=== PATIENT | male | born 1940 | race Caucasian/White ===

== ENCOUNTER 2017-01-15 04:50 | Observation (INO) | payer OTHER ==
[~2017-01-15] VITALS: Ht 172.7 cm; Wt 80.4 kg
--- NOTE | 2017-01-15 07:00 | DIAGNOSTIC IMAGING REPORT ---
PROCEDURE: CT ABD/PELVIS WITH CONTRAST CLINICAL INDICATION: ABDOMINAL PAIN TECHNIQUE: 125 ml of Isovue 300 were injected intravenously and axial images were obtained of the entire abdomen and pelvis with sagittal and coronal reformations. COMPARISON: None. FINDINGS: ABDOMEN: Minor bibasilar atelectasis. Borderline cardiomegaly. Enlarged gallbladder (10 cm) with multiple small calcified gallstones, wall thickening and pericholecystic inflammatory changes. No evidence of biliary obstruction. Right-sided THICKENER OPERATOR shunt with the tip in the right lower quadrant. Hepatic steatosis. The pancreas, spleen, adrenal glands and kidneys are unremarkable. Moderate atherosclerosis of the aorta. PELVIS: Normal appendix. 5 cm left inguinal hernia containing a knuckle of the sigmoid colon. Mild sigmoid diverticulosis. Small amount of free fluid the pelvis. Enlarged prostate (5.5 cm). Normal bladder. Moderate degenerative changes of the lower facets. IMPRESSION: 1. Cholelithiasis with inflammatory changes consistent with acute cholecystitis 2. Hepatic steatosis 3. 5 cm left inguinal hernia containing a knuckle of the sigmoid colon 4. Mild sigmoid diverticulosis 5. Right-sided THICKENER OPERATOR shunt 6. Results discussed with Dr. Botello All CT scans at this facility use dose modulation, iterative reconstruction, and/or weight-based dosing when appropriate to reduce radiation dose to as low as reasonably achievable.
--- NOTE | 2017-01-15 07:00 | DIAGNOSTIC IMAGING REPORT ---
PROCEDURE: CT ABD/PELVIS WITH CONTRAST CLINICAL INDICATION: ABDOMINAL PAIN TECHNIQUE: 125 ml of Isovue 300 were injected intravenously and axial images were obtained of the entire abdomen and pelvis with sagittal and coronal reformations. COMPARISON: None. FINDINGS: ABDOMEN: Minor bibasilar atelectasis. Borderline cardiomegaly. Enlarged gallbladder (10 cm) with multiple small calcified gallstones, wall thickening and pericholecystic inflammatory changes. No evidence of biliary obstruction. Right-sided FOOD CHEMIST shunt with the tip in the right lower quadrant. Hepatic steatosis. The pancreas, spleen, adrenal glands and kidneys are unremarkable. Moderate atherosclerosis of the aorta. PELVIS: Normal appendix. 5 cm left inguinal hernia containing a knuckle of the sigmoid colon. Mild sigmoid diverticulosis. Small amount of free fluid the pelvis. Enlarged prostate (5.5 cm). Normal bladder. Moderate degenerative changes of the lower facets. IMPRESSION: 1. Cholelithiasis with inflammatory changes consistent with acute cholecystitis 2. Hepatic steatosis 3. 5 cm left inguinal hernia containing a knuckle of the sigmoid colon 4. Mild sigmoid diverticulosis 5. Right-sided FOOD CHEMIST shunt 6. Results discussed with Dr. Botello All CT scans at this facility use dose modulation, iterative reconstruction, and/or weight-based dosing when appropriate to reduce radiation dose to as low as reasonably achievable.
--- NOTE | 2017-01-15 07:21 | ED ORDER SUMMARY ---
..... Patient: RENETTA KOHLI OrderSheet [facility] VisitID: [id number] [place] [address] 76y, M Registration Date/Time: 01/15/2017 ORDER SHEET Weight: 77.1 kg (stated) Allergies: No Known Drug Allergy GENERAL ORDERS: CBC w Diff Urgent (04:55 01/15/2017 Nora ROGERS) (Ack 4:59 CHagerty ER Game And Fish Protector) (5:21 RCollier R.N.) CMP Urgent (04:55 01/15/2017 Nora ROGERS) (Ack 4:59 CHagerty ER Game And Fish Protector) (5:21 RCollier R.N.) UA-Culture if indicated Urgent (04:55 01/15/2017 Nora ROGERS) (Ack 4:59 CHagerty ER Game And Fish Protector) (7:21 JSimbeck R.N.) Amylase Urgent (04:55 01/15/2017 Nora ROGERS) (Ack 4:59 CHagerty ER Game And Fish Protector) (5:21 RCollier R.N.) Lipase Urgent (04:55 01/15/2017 Nora ROGERS) (Ack 4:59 CHagerty ER Game And Fish Protector) (5:21 RCollier R.N.) Blood Culture (No) (N/A) Urgent (05:53 01/15/2017 CHagerty ER Game And Fish Protector verbal order read back to Nora ROGERS) (Ack 5:58 CHagerty ER Game And Fish Protector) (7:25 CHagerty ER Game And Fish Protector) CT Abd/Pel w Cont (No) (BUN 13, CRE1.1, GFR>60) Urgent (05:53 01/15/2017 CHagerty ER Game And Fish Protector verbal order read back to Nora ROGERS) (Ack 5:58 CHagerty ER Game And Fish Protector) (6:38 Joan) Lactate, Serum Urgent (05:56 01/15/2017 CHagerty ER Game And Fish Protector verbal order read back to Nora ROGERS) (Ack 5:58 CHagerty ER Game And Fish Protector) (7:21 JSimbeck R.N.) MEDICATION ORDERS: IV FLUIDS: IV NS : initial bolus 500 mL (1000 mL/hr), then 125 mL/hr for 4h (NOW); Urgent (04:55 01/15/2017 Nora ROGERS) (Ack 5:04 RCollier R.N.) (5:20 RCollier R.N.) Dilaudid IV 0.5 mg (NOW) (05:22 01/15/2017 Nora ROGERS) (Ack 5:24 RCollier R.N.) (5:34 RCollier R.N.) Zofran IV 4 mg (NOW) (05:22 01/15/2017 Nora ROGERS) (Ack 5:24 RCollier R.N.) (5:34 RCollier R.N.) Protonix IVP 40mg 40 mg (Mix in NS 10ml over 2min) (05:24 01/15/2017 Nora ROGERS) (Ack 5:24 RCollier R.N.) (5:35 RCollier R.N.) Levofloxacin IV 750 mg/150 mL (NOW) (07:25 01/15/2017 Nora ROGERS) (7:41 JSimbeck R.N.) Metronidazole IV 500 mg/100mL (NOW) (07:25 01/15/2017 Nora ROGERS) (7:47 JSimbeck R.N.) Dilaudid IV 0.5 mg (HIGH ALERT MEDICATION, NOW) (07:42 01/15/2017 Nora ROGERS) (7:51 JSimbeck R.N.) ORDER SHEET NOTES: [Electronically signed by Rafa Marcos R.N. (11:04 01/15/2017)] [Electronically signed by Ej Botello MD (21:36 01/15/2017)] [Electronically locked/signed by Rafa Marcos R.N. (11:04 01/15/2017)]
--- NOTE | 2017-01-15 07:21 | ED NURSING NOTES ---
Clinical Report - Nurses [address] [place] [address] 01/15/2017 4:52 Patient: RENETTA KOHLI TRIAGE Triage time 04:54. Acuity: LEVEL 3. Chief Complaint: ABDOMINAL PAIN and NAUSEA. Alert. --05:02 Ale Ellis R.N. <<STRICKEN ENTRY-- 04:53 01/15/17. BP: 88/74. HR: 75. RR: 19. O2 saturation: 97%. Temp: 98.9 F (oral). Pain level now: 02/24. --05:02 Ale Ellis R.N. --END STRIKE>> Correction. --07:26 Ale Ellis R.N. 07:26 01/15/17. BP: 188/74. HR: 75. RR: 19. O2 saturation: 97% on room air. Temp: 98.9 F (oral). Pain level now: 02/24. --07:26 Ale Ellis R.N. Weight: 77.1 kg stated. Height/Length: 68 inches Per Patient. BMI: 25.9. --05:01 Ale Ellis R.N. Medications Diazepam Oral, as needed, dizziness due to inner ear problems, last dose 2-3 weeks. --04:55 Ale Ellis R.N. Fexofenadine HCl Oral. --04:55 Ale Ellis R.N. Fluticasone Furoate Nasal. --04:55 Ale Ellis R.N. Mar-D Allergy & Congestion Oral. --04:55 Ale Ellis R.N. Allergies No Known Drug Allergy. --04:57 Ale Ellis R.N. History Arrived by EMS. Primary physician ([facility] in [place]). This started last night. Onset. (at about 1800). Treatment VENEER LATHE OPERATOR: None. See EMS report. PAST MEDICAL HX: Immunizations: up-to-date. SOCIAL HX: Never smoker. No alcohol use or drug use. NUTRITIONAL RISK ASSESSMENT: The nutritional risk assessment revealed no deficiencies. FUNCTIONAL ASSESSMENT: Functional assessment performed: uses walker and cane. on going due to hydrocephalis. --05:02 Ale Ellis R.N. No vomiting or diarrhea. --05:04 Ale Ellis R.N. ( reports pt has had similar episodes of abdominal pain, after eating. First episode was 4-18-17 & pt was seen by PCP 2 weeks after and no work up was done at that time. Pt then had another episode 4 days ago and then again last night/now.). --05:10 Ale Ellis R.N. PROBLEMS: Seasonal allergic rhinitis. Inner Ear Problems. --04:59 Ale Ellis R.N. Hydrocephalus. --05:01 Ale Ellis R.N. Meniere's Syndrome. --05:12 Ale Ellis R.N. ADDITIONAL SURGERIES: Ear surgeries. --04:59 Ale Ellis R.N. brain Shunt. --05:01 Ale Ellis R.N. The following entry was struck by Ale Ellis R.N., 05:01 Reason - other <<STRICKEN ENTRY-- Stent in brain. --04:59 Ale Ellis R.N. --END STRIKE>>. Interventions ID band on patient. To treatment room. --05:02 Ale Ellis R.N. PHYSICAL ASSESSMENT To room via stretcher. Patient gowned. GENERAL / NEURO / PSYCH: Alert. Oriented X 4. Appears in no acute distress. HEENT: Mucous membranes are pink. RESPIRATORY: Respirations not labored. CVS: Capillary refill less than 2 seconds. SKIN: Skin is warm and dry. --05:02 Ale Ellis R.N. NURSING PROGRESS NOTES Head of bed elevated. Two patient identifiers checked. Call light placed in reach. Side rails up x 1. Bed placed in lowest position. Brakes of bed on. --05:03 Ale Ellis R.N. Patient ready for evaluation- chart flagged. --05:03 Ale Ellis R.N. ( urinal given to pt, sample requested). --05:03 Ale Ellis R.N. 05:00 01/15/2017 Site #1 started via IV in the right antecubital space with an 20g angiocath, with aseptic technique and good blood return; one attempt. Blood drawn: rainbow set. Labeled in the presence of the patient and sent to the lab. Saline lock flushed with 10 mL saline (started by Kam Owen RN). --05:03 Ale Ellis R.N. 05:20 01/15/2017 Started bag #1 1000 mL IV Fluids IV NS (Saline); bolus of 500 mL over 30 minute(s) then at 125 mL/hr via site #1 via IV pump. Allergies verified and confirmed 5 rights. IV patency established. IV site checked: no pain, redness, or swelling. IV flushed thoroughly pre- and post-medication administration. --05:20 Ale Ellis R.N. 05:28 01/15/2017 Zofran (Ondansetron HCl) IVP 4 mg given over 1 minute(s) via site #1. Allergies verified and confirmed 5 rights. IV patency established. IV site checked: no pain, redness, or swelling. IV flushed thoroughly pre- and post-medication administration. IVP given by RN. --05:34 Ale Ellis R.N. 05:30 01/15/2017 Dilaudid (HYDROmorphone HCl PF) IVP 0.5 mg given over 1 minute(s) via site #1. Allergies verified, confirmed 5 rights and sedative warning given to the patient. IV patency established. IV site checked: no pain, redness, or swelling. IV flushed thoroughly pre- and post-medication administration. IVP given by RN. --05:34 Ale Ellis R.N. 05:32 01/15/2017 PROTONIX (Pantoprazole Sodium) IVP 40 mg given diluted in NS 10mL over 2 minute(s) via site #1. Allergies verified and confirmed 5 rights. IV patency established. IV site checked: no pain, redness, or swelling. IV flushed thoroughly pre- and post-medication administration. IVP given by RN. --05:35 Ale Ellis R.N. 06:40. Patient ID band checked for patient name and birthdate. Clean catch urine collected with return of yellow-colored madina-colored clear urine; sample sent to lab for urinalysis. Specimen labeled in the presence of the patient. --06:40 Jeremías Hinson R.N. 07:32 01/15/2017 Started 750 mg of Levofloxacin IVPB in bag #1 150 mL; at 100 mL/hr over 1.5 hour(s) via site #1 via IV pump. Allergies verified and confirmed 5 rights. IV patency established. IV site checked: no pain, redness, or swelling. IV flushed thoroughly pre- and post-medication administration. --07:41 Rafa Marcos R.N. 07:45 01/15/2017 Started 500 mg of Metronidazole IVPB in bag #1 100 mL; at 100 mL/hr over 1 hour(s) via site #1 via IV pump. Allergies verified and confirmed 5 rights. IV patency established. IV site checked: no pain, redness, or swelling. IV flushed thoroughly pre- and post-medication administration. --07:47 Rafa Marcos R.N. 07:48 01/15/2017 Dilaudid (HYDROmorphone HCl PF) IVP 0.5 mg given over 1 minute(s) via site #1. Allergies verified, confirmed 5 rights and sedative warning given to the patient. IV patency established. IV site checked: no pain, redness, or swelling. IV flushed thoroughly pre- and post-medication administration. IVP given by RN. --07:51 Rafa Marcos R.N. 05:30 01/15/17. BP: 174/76. HR: 75. RR: 20. O2 saturation: 94%. --07:52 Rafa Marcos R.N. 06:00 01/15/17. BP: 180/83. HR: 77. RR: 20. O2 saturation: 96%. --07:53 Rafa Marcos R.N. Care transferred and report received (from JODIE Aguilera @[id number]). --07:54 Rafa Marcos R.N. ( h/p forms on chart.). --07:54 Suzie Diaz, ER Tech1 Pulse oximeter and NIBP monitor placed on patient; monitor alarms on. Head of bed elevated. Reassurance given. Call light placed in reach. Bed placed in lowest position. Brakes of bed on. --07:57 Rafa Marcos R.N. 07:50 01/15/17. BP: 160/79. HR: 73. RR: 20. O2 saturation: 94% on room air. Pain level now: 03/27. --07:57 Rafa Marcos R.N. ( Overview faxed to 2nd floor.). --08:27 Suzie Diaz ER Tech1 08:00 01/15/17. BP: 159/75. HR: 69. RR: 16. O2 saturation: 95% on room air. Pain level now: 10/25. --08:36 Rafa Marcos R.N. 08:45 01/15/2017 Metronidazole IVPB Discontinued: bag #1 completed. Total amount infused: 100 mL. IV patency established. IV site checked: no pain, redness, or swelling. IV flushed thoroughly. --08:46 Rafa Marcos R.N. 08:40 01/15/17. BP: 143/79. HR: 78. RR: 16. O2 saturation: 95% on room air. Pain level now: 10/25. --08:48 Rafa Marcos R.N. ( Pt and his started working on the admit packet). --08:48 Rafa Marcos R.N. 09:10 01/15/2017 IV Fluids IV NS Discontinued: bag #1 completed upon admission. Total amount infused: 1000 mL. IV patency established. IV site checked: no pain, redness, or swelling. IV flushed thoroughly. --11:04 Rafa Marcos R.N. DISPOSITION / DISCHARGE Report was given to a nurse via a phone call. Report included patient's care, treatment, medications, reviewed medication reconcilliation, and condition (including any recent changes or anticipated changes). All questions were answered. Report was acknowledged. (JODIE Nichole @[phone]). --08:52 Rafa Marcos R.N. 09:12 01/15/2017 Site #[address] upon admission; patent, no pain and no signs of infection or infiltration. Good blood return present. Flushed with 10 mL saline. --09:12 Rafa Marcos R.N. Departure time: 912. Condition at departure: unchanged. Disposition: observation in Acute Care (210). Transported via stretcher by transport team with IV. --09:14 Rafa Marcos R.N. 09:00 01/15/17. BP: 152/79. HR: 78. RR: 16. O2 saturation: 95% on room air. Temp: 99.5 F. Pain level now: 10/25. --09:14 Rafa Marcos R.N. Locked/Released at 01/15/2017 11:04 by Rafa Marcos R.N.
--- NOTE | 2017-01-15 07:21 | ED CLINICAL REPORT ---
Clinical Report - Physicians/Mid Levels [facility] [address] [place] [address] 01/15/2017 4:52 Patient: RENETTA KOHLI Time Seen: 04:54. Arrived- By private vehicle. Historian- patient. HISTORY OF PRESENT ILLNESS Chief Complaint: ABDOMINAL PAIN. At its maximum, severity described as 8 / 10. When seen in the E.D., severity described as 8 / 10. Modifying factors- worsened by movement, walking, cough and deep breaths. Relieved by rest. It is described as sharp. No radiation. It is described as generalized in location. This started last night and is still present. It was abrupt in onset and has been constant and waxing/waning. The patient has had nausea. No loss of appetite, vomiting or diarrhea. Similar symptoms previously: Several times. Diagnosis: ("gas"). REVIEW OF SYSTEMS No constipation, black stools or stools or bloody stools or stools. No fever, sweats, calf pain, chest pain or cough. No difficulty breathing, pedal edema, palpitations or urinary problems. Last bowel movement: yesterday. The patient has had chills. reports normal flatus. All systems otherwise negative, except as recorded above. PAST HISTORY PCP - [facility]. Problems: Benign Prostatic Hypertrophy. Meniere's Syndrome. Hydrocephalus. Seasonal allergic rhinitis. Inner Ear Problems. Additional Surgeries: brain Shunt. Ear surgeries. Medications: Mar-D Allergy & Congestion Oral. Fluticasone Furoate Nasal. Fexofenadine HCl Oral. Diazepam Oral, as needed, dizziness due to inner ear problems, last dose 2-3 weeks. Allergies: No Known Drug Allergy. SOCIAL HISTORY Never smoker. No alcohol use or drug use. Residence: [place]. FAMILY HISTORY Heart disease in first-degree relative (sibling). ADDITIONAL NOTES The nursing notes have been reviewed. PHYSICAL EXAM Vital Signs: Have been reviewed. Appearance: Alert. Eyes: Pupils equal, round and reactive to light. ENT: Pharynx normal. Neck: Normal inspection. Neck supple. CVS: Normal heart rate and rhythm. Heart sounds normal. Respiratory: No respiratory distress. Breath sounds normal. Abdomen: Soft. Moderate tenderness in the epigastric area and right lower quadrant. Bowel sounds normal. No organomegaly. No mass. Distention (mild). Back: Normal inspection. No CVA tenderness. Skin: Skin warm and dry. Normal skin color. Normal skin turgor. Extremities: Extremities exhibit normal ROM. No lower extremity edema. LABS, X-RAYS, AND EKG Abdominal CT: IMPRESSION: 1. Cholelithiasis with inflammatory changes consistent with acute cholecystitis 2. Hepatic steatosis 3. 5 cm left inguinal hernia containing a knuckle of the sigmoid colon 4. Mild sigmoid diverticulosis 5. Right-sided ROTATING EQUIPMENT ENGINEER shunt. The study was interpreted contemporaneously by me and discussed with the radiologist. Laboratory Tests: UA-Culture if indicated: (LUCIO: 01/15/2017 06:40) ( MsgRcvd 01/15/2017 06:53) Final results Test Result Flag Units (Reference) URINE COLOR YELLOW URINE APPEARANCE CLEAR URINE GLUCOSE NEGATIVE (NEGATIVE) URINE BILIRUBIN NEGATIVE (NEGATIVE) URINE KETONE TRACE (NEGATIVE) URINE SPECIFIC GRAVITY 1.010 (1.010-1.030) URINE PH 6.5 (5.0-8.0) URINE PROTEIN NEGATIVE (NEGATIVE) URINE UROBILINOGEN 4.0 EU/dL (0.2-1.0) The urobilinogen reagent area may react with interferingsubstances known to react with Kirit's reagent such asp-aminosalicylic acid and sulfonamides. Atypical colorreactions may be obtained in the presence of highconcentrations of p-aminobenzoic acid. The absence ofurobilinogen cannot be determined with this test. URINE NITRITE NEGATIVE (NEGATIVE) URINE BLOOD TRACE-INTACT (NEGATIVE) URINE LEUK ESTERASE NEGATIVE (NEGATIVE) URINE RBC 0-1 rbc/hpf (0-1) URINE WBC 0-1 wbc/hpf (0-1) URINE EPITHELIAL CELLS 0-1 EPI/hpf (0-5) URINE BACTERIA NONE SEEN (NONE SEEN) URINE COMMENT CULT NOT INDICATED URINE CULTURES ARE SET-UP BASED ON THE FOLLOWING CRITERIA:POSITIVE NITRITEPOSITIVE LEUKOCYTE ESTERASEGREATER THAN 10 WHITE BLOOD CELLSMODERATE (2+) OR GREATER BACTERIA CBC w Diff: (LUCIO: 01/15/2017 04:58) ( MsgRcvd 01/15/2017 05:07) Final results Test Result Flag Units (Reference) WHITE BLOOD COUNT 17.1 H K/uL (4.5-11.5) RED BLOOD COUNT 5.65 M/uL (4.50-5.90) HEMOGLOBIN 16.6 gm/dL (13.5-17.5) HEMATOCRIT 49.3 % (41.0-53.0) MEAN CELL VOLUME 87 fL (80-100) MEAN CORPUSCULAR HGB 29 pg (26-34) MEAN CORPUSCULAR HGB CONC 34 g/dL (31-37) RED CELL DISTRIBUTION WIDTH 13.8 % (11.6-14.8) PLATELET COUNT 243 K/uL (150-400) NEUTROPHIL % 83.9 H % (50-75) LYMPH % 6.6 L % (25-40) MONO % 9.3 % (3-14) EOSINOPHIL % 0.1 % (0-4) BASOPHIL % 0.1 % (0-2) Lactate, Serum: (LUCIO: 01/15/2017 06:25) ( [facility] 01/15/2017 06:51) Final results Test Result Flag Units (Reference) LACTIC ACID 1.2 mmol/L (0.4-2.0) CMP: (LUCIO: 01/15/2017 04:58) ( [facility] 01/15/2017 05:20) Final results Test Result Flag Units (Reference) GLUCOSE 154 H mg/dL (70-110) BUN 13 mg/dL (7-18) CREATININE 1.1 mg/dL (0.6-1.3) Estimated GFR >60 mL/min Estimated GFR- >60 mL/min Note: Persistent reduction over 3 months in eGFR<60 mL/min/1.73 m2 defines CKD. Patients with eGFR values>=60 mL/min/1.73 m2 may also have CKD if evidence ofpersistent proteinuria. Additional information may be foundat www.kidney.org. SODIUM 133 L mmol/L (136-145) POTASSIUM 4.1 mmol/L (3.5-5.1) CHLORIDE 98 mmol/L (98-107) CARBON DIOXIDE 22 mmol/L (21-32) CALCIUM 9.4 mg/dL (8.5-10.1) TOTAL PROTEIN 8.5 H g/dL (6.4-8.2) ALBUMIN 3.7 g/dL (3.3-5.0) BILIRUBIN, TOTAL 2.2 H mg/dL (0.0-1.0) ALKALINE PHOSPHATASE 78 U/L (46-116) AST (SGOT) 16 U/L (15-37) ALT (SGPT) 42 U/L (12-78) LIPASE 119 U/L (73-393) AMYLASE 38 U/L (25-115) . PROGRESS AND PROCEDURES Course of Care: Patient is stable. Consult obtained from surgery. Liseth. Case discussed. Phone consult only. Will see patient in the hospital. Patient and spouse counseled in person several times regarding the patient's condition, test results and need for surgery and DNR (Do Not Resuscitate) considerations for the patient. Old medical records ordered. Disposition orders written (in [email or web address]). Disposition: Admitted. Observation. CLINICAL IMPRESSION Acute cholecystitis. (Electronically signed by Ej Botello MD 01/15/2017 21:36)
--- NOTE | 2017-01-15 07:21 | ED ORDER SUMMARY ---
..... Patient: RENETTA KOHLI OrderSheet [facility] VisitID: [id number] [place] [address] 76y, M Registration Date/Time: 01/15/2017 ORDER SHEET Weight: 77.1 kg (stated) Allergies: No Known Drug Allergy GENERAL ORDERS: CBC w Diff Urgent (04:55 01/15/2017 Nora ROGERS) (Ack 4:59 CHagerty ER Automotive Accessory Installer) (5:21 RCollier R.N.) CMP Urgent (04:55 01/15/2017 Nora ROGERS) (Ack 4:59 CHagerty ER Automotive Accessory Installer) (5:21 RCollier R.N.) UA-Culture if indicated Urgent (04:55 01/15/2017 Nora ROGERS) (Ack 4:59 CHagerty ER Automotive Accessory Installer) (7:21 JSimbeck R.N.) Amylase Urgent (04:55 01/15/2017 Nora ROGERS) (Ack 4:59 CHagerty ER Automotive Accessory Installer) (5:21 RCollier R.N.) Lipase Urgent (04:55 01/15/2017 Nora ROGERS) (Ack 4:59 CHagerty ER Automotive Accessory Installer) (5:21 RCollier R.N.) Blood Culture (No) (N/A) Urgent (05:53 01/15/2017 CHagerty ER Automotive Accessory Installer verbal order read back to Nora ROGERS) (Ack 5:58 CHagerty ER Automotive Accessory Installer) (7:25 CHagerty ER Automotive Accessory Installer) CT Abd/Pel w Cont (No) (BUN 13, CRE1.1, GFR>60) Urgent (05:53 01/15/2017 CHagerty ER Automotive Accessory Installer verbal order read back to Nora ROGERS) (Ack 5:58 CHagerty ER Automotive Accessory Installer) (6:38 Joan) Lactate, Serum Urgent (05:56 01/15/2017 CHagerty ER Automotive Accessory Installer verbal order read back to Nora ROGERS) (Ack 5:58 CHagerty ER Automotive Accessory Installer) (7:21 JSimbeck R.N.) MEDICATION ORDERS: IV FLUIDS: IV NS : initial bolus 500 mL (1000 mL/hr), then 125 mL/hr for 4h (NOW); Urgent (04:55 01/15/2017 Nora ROGERS) (Ack 5:04 RCollier R.N.) (5:20 RCollier R.N.) Dilaudid IV 0.5 mg (NOW) (05:22 01/15/2017 Nora ROGERS) (Ack 5:24 RCollier R.N.) (5:34 RCollier R.N.) Zofran IV 4 mg (NOW) (05:22 01/15/2017 Nora ROGERS) (Ack 5:24 RCollier R.N.) (5:34 RCollier R.N.) Protonix IVP 40mg 40 mg (Mix in NS 10ml over 2min) (05:24 01/15/2017 Nora ROGERS) (Ack 5:24 RCollier R.N.) (5:35 RCollier R.N.) Levofloxacin IV 750 mg/150 mL (NOW) (07:25 01/15/2017 Nora ROGERS) (7:41 JSimbeck R.N.) Metronidazole IV 500 mg/100mL (NOW) (07:25 01/15/2017 Nora ROGERS) (7:47 JSimbeck R.N.) Dilaudid IV 0.5 mg (HIGH ALERT MEDICATION, NOW) (07:42 01/15/2017 Nora ROGERS) (7:51 JSimbeck R.N.) ORDER SHEET NOTES: [Electronically signed by Rafa Marcos R.N. (11:04 01/15/2017)] [Electronically signed by Ej Botello MD (21:36 01/15/2017)] [Electronically locked/signed by Rafa Marcos R.N. (11:04 01/15/2017)]
--- NOTE | 2017-01-15 07:21 | ED CLINICAL REPORT ---
Clinical Report - Physicians/Mid Levels [facility] [address] [place] [address] 01/15/2017 4:52 Patient: RENETTA KOHLI Time Seen: 04:54. Arrived- By private vehicle. Historian- patient. HISTORY OF PRESENT ILLNESS Chief Complaint: ABDOMINAL PAIN. At its maximum, severity described as 8 / 10. When seen in the E.D., severity described as 8 / 10. Modifying factors- worsened by movement, walking, cough and deep breaths. Relieved by rest. It is described as sharp. No radiation. It is described as generalized in location. This started last night and is still present. It was abrupt in onset and has been constant and waxing/waning. The patient has had nausea. No loss of appetite, vomiting or diarrhea. Similar symptoms previously: Several times. Diagnosis: ("gas"). REVIEW OF SYSTEMS No constipation, black stools or stools or bloody stools or stools. No fever, sweats, calf pain, chest pain or cough. No difficulty breathing, pedal edema, palpitations or urinary problems. Last bowel movement: yesterday. The patient has had chills. reports normal flatus. All systems otherwise negative, except as recorded above. PAST HISTORY PCP - [facility]. Problems: Benign Prostatic Hypertrophy. Meniere's Syndrome. Hydrocephalus. Seasonal allergic rhinitis. Inner Ear Problems. Additional Surgeries: brain Shunt. Ear surgeries. Medications: Mar-D Allergy & Congestion Oral. Fluticasone Furoate Nasal. Fexofenadine HCl Oral. Diazepam Oral, as needed, dizziness due to inner ear problems, last dose 2-3 weeks. Allergies: No Known Drug Allergy. SOCIAL HISTORY Never smoker. No alcohol use or drug use. Residence: [place]. FAMILY HISTORY Heart disease in first-degree relative (sibling). ADDITIONAL NOTES The nursing notes have been reviewed. PHYSICAL EXAM Vital Signs: Have been reviewed. Appearance: Alert. Eyes: Pupils equal, round and reactive to light. ENT: Pharynx normal. Neck: Normal inspection. Neck supple. CVS: Normal heart rate and rhythm. Heart sounds normal. Respiratory: No respiratory distress. Breath sounds normal. Abdomen: Soft. Moderate tenderness in the epigastric area and right lower quadrant. Bowel sounds normal. No organomegaly. No mass. Distention (mild). Back: Normal inspection. No CVA tenderness. Skin: Skin warm and dry. Normal skin color. Normal skin turgor. Extremities: Extremities exhibit normal ROM. No lower extremity edema. LABS, X-RAYS, AND EKG Abdominal CT: IMPRESSION: 1. Cholelithiasis with inflammatory changes consistent with acute cholecystitis 2. Hepatic steatosis 3. 5 cm left inguinal hernia containing a knuckle of the sigmoid colon 4. Mild sigmoid diverticulosis 5. 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 The study was interpreted contemporaneously by me and discussed with the radiologist. Laboratory Tests: UA-Culture if indicated: (LUCIO: 01/15/2017 06:40) ( MsgRcvd 01/15/2017 06:53) Final results Test Result Flag Units (Reference) URINE COLOR YELLOW URINE APPEARANCE CLEAR URINE GLUCOSE NEGATIVE (NEGATIVE) URINE BILIRUBIN NEGATIVE (NEGATIVE) URINE KETONE TRACE (NEGATIVE) URINE SPECIFIC GRAVITY 1.010 (1.010-1.030) URINE PH 6.5 (5.0-8.0) URINE PROTEIN NEGATIVE (NEGATIVE) URINE UROBILINOGEN 4.0 EU/dL (0.2-1.0) The urobilinogen reagent area may react with interferingsubstances known to react with Kirit's reagent such asp-aminosalicylic acid and sulfonamides. Atypical colorreactions may be obtained in the presence of highconcentrations of p-aminobenzoic acid. The absence ofurobilinogen cannot be determined with this test. URINE NITRITE NEGATIVE (NEGATIVE) URINE BLOOD TRACE-INTACT (NEGATIVE) URINE LEUK ESTERASE NEGATIVE (NEGATIVE) URINE RBC 0-1 rbc/hpf (0-1) URINE WBC 0-1 wbc/hpf (0-1) URINE EPITHELIAL CELLS 0-1 EPI/hpf (0-5) URINE BACTERIA NONE SEEN (NONE SEEN) URINE COMMENT CULT NOT INDICATED URINE CULTURES ARE SET-UP BASED ON THE FOLLOWING CRITERIA:POSITIVE NITRITEPOSITIVE LEUKOCYTE ESTERASEGREATER THAN 10 WHITE BLOOD CELLSMODERATE (2+) OR GREATER BACTERIA CBC w Diff: (LUCIO: 01/15/2017 04:58) ( MsgRcvd 01/15/2017 05:07) Final results Test Result Flag Units (Reference) WHITE BLOOD COUNT 17.1 H K/uL (4.5-11.5) RED BLOOD COUNT 5.65 M/uL (4.50-5.90) HEMOGLOBIN 16.6 gm/dL (13.5-17.5) HEMATOCRIT 49.3 % (41.0-53.0) MEAN CELL VOLUME 87 fL (80-100) MEAN CORPUSCULAR HGB 29 pg (26-34) MEAN CORPUSCULAR HGB CONC 34 g/dL (31-37) RED CELL DISTRIBUTION WIDTH 13.8 % (11.6-14.8) PLATELET COUNT 243 K/uL (150-400) NEUTROPHIL % 83.9 H % (50-75) LYMPH % 6.6 L % (25-40) MONO % 9.3 % (3-14) EOSINOPHIL % 0.1 % (0-4) BASOPHIL % 0.1 % (0-2) Lactate, Serum: (LUCIO: 01/15/2017 06:25) ( [facility] 01/15/2017 06:51) Final results Test Result Flag Units (Reference) LACTIC ACID 1.2 mmol/L (0.4-2.0) CMP: (LCUIO: 01/15/2017 04:58) ( [facility] 01/15/2017 05:20) Final results Test Result Flag Units (Reference) GLUCOSE 154 H mg/dL (70-110) BUN 13 mg/dL (7-18) CREATININE 1.1 mg/dL (0.6-1.3) Estimated GFR >60 mL/min Estimated GFR- >60 mL/min Note: Persistent reduction over 3 months in eGFR<60 mL/min/1.73 m2 defines CKD. Patients with eGFR values>=60 mL/min/1.73 m2 may also have CKD if evidence ofpersistent proteinuria. Additional information may be foundat [email or web address].org. SODIUM 133 L mmol/L (136-145) POTASSIUM 4.1 mmol/L (3.5-5.1) CHLORIDE 98 mmol/L (98-107) CARBON DIOXIDE 22 mmol/L (21-32) CALCIUM 9.4 mg/dL (8.5-10.1) TOTAL PROTEIN 8.5 H g/dL (6.4-8.2) ALBUMIN 3.7 g/dL (3.3-5.0) BILIRUBIN, TOTAL 2.2 H mg/dL (0.0-1.0) ALKALINE PHOSPHATASE 78 U/L (46-116) AST (SGOT) 16 U/L (15-37) ALT (SGPT) 42 U/L (12-78) LIPASE 119 U/L (73-393) AMYLASE 38 U/L (25-115) . PROGRESS AND PROCEDURES Course of Care: Patient is stable. Consult obtained from surgery. Liseth. Case discussed. Phone consult only. Will see patient in the hospital. Patient and spouse counseled in person several times regarding the patient's condition, test results and need for surgery and DNR (Do Not Resuscitate) considerations for the patient. Old medical records ordered. Disposition orders written (in [facility]). Disposition: Admitted. Observation. CLINICAL IMPRESSION Acute cholecystitis. (Electronically signed by Ej Botello MD 01/15/2017 21:36)
--- NOTE | 2017-01-15 07:21 | ED NURSING NOTES ---
Clinical Report - Nurses [facility] [address] [place] [address] 01/15/2017 4:52 Patient: RENETTA KOHLI TRIAGE Triage time 04:54. Acuity: LEVEL 3. Chief Complaint: ABDOMINAL PAIN and NAUSEA. Alert. --05:02 Ale Ellis R.N. <<STRICKEN ENTRY-- 04:53 01/15/17. BP: 88/74. HR: 75. RR: 19. O2 saturation: 97%. Temp: 98.9 F (oral). Pain level now: 02/24. --05:02 Ale Ellis R.N. --END STRIKE>> Correction. --07:26 Ale Ellis R.N. 07:26 01/15/17. BP: 188/74. HR: 75. RR: 19. O2 saturation: 97% on room air. Temp: 98.9 F (oral). Pain level now: 02/24. --07:26 Ale Ellis R.N. Weight: 77.1 kg stated. Height/Length: 68 inches Per Patient. BMI: 25.9. --05:01 Ale Ellis R.N. Medications Diazepam Oral, as needed, dizziness due to inner ear problems, last dose 2-3 weeks. --04:55 Ale Ellis R.N. Fexofenadine HCl Oral. --04:55 Ale Ellis R.N. Fluticasone Furoate Nasal. --04:55 Ale Ellis R.N. Mar-D Allergy & Congestion Oral. --04:55 Ale Ellis R.N. Allergies No Known Drug Allergy. --04:57 Ale Ellis R.N. History Arrived by EMS. Primary physician ([facility] in [place]). This started last night. Onset. (at about 1800). Treatment [employer]: None. See EMS report. PAST MEDICAL HX: Immunizations: up-to-date. SOCIAL HX: Never smoker. No alcohol use or drug use. NUTRITIONAL RISK ASSESSMENT: The nutritional risk assessment revealed no deficiencies. FUNCTIONAL ASSESSMENT: Functional assessment performed: uses walker and cane. on going due to hydrocephalis. --05:02 Ale Ellis R.N. No vomiting or diarrhea. --05:04 Ale Ellis R.N. ( reports pt has had similar episodes of abdominal pain, after eating. First episode was 4-18-17 & pt was seen by PCP 2 weeks after and no work up was done at that time. Pt then had another episode 4 days ago and then again last night/now.). --05:10 Ale Ellis R.N. PROBLEMS: Seasonal allergic rhinitis. Inner Ear Problems. --04:59 Ale Ellis R.N. Hydrocephalus. --05:01 Ale Ellis R.N. Meniere's Syndrome. --05:12 Ale Ellis R.N. ADDITIONAL SURGERIES: Ear surgeries. --04:59 Ale Ellis R.N. brain Shunt. --05:01 Ale Ellis R.N. The following entry was struck by Ale Ellis R.N., 05:01 Reason - other <<STRICKEN ENTRY-- Stent in brain. --04:59 Ale Ellis R.N. --END STRIKE>>. Interventions ID band on patient. To treatment room. --05:02 Ale Ellis R.N. PHYSICAL ASSESSMENT To room via stretcher. Patient gowned. GENERAL / NEURO / PSYCH: Alert. Oriented X 4. Appears in no acute distress. HEENT: Mucous membranes are pink. RESPIRATORY: Respirations not labored. CVS: Capillary refill less than 2 seconds. SKIN: Skin is warm and dry. --05:02 Ale Ellis R.N. NURSING PROGRESS NOTES Head of bed elevated. Two patient identifiers checked. Call light placed in reach. Side rails up x 1. Bed placed in lowest position. Brakes of bed on. --05:03 Ale Ellis R.N. Patient ready for evaluation- chart flagged. --05:03 Ale Ellis R.N. ( urinal given to pt, sample requested). --05:03 Ale Ellis R.N. 05:00 01/15/2017 Site #1 started via IV in the right antecubital space with an 20g angiocath, with aseptic technique and good blood return; one attempt. Blood drawn: rainbow set. Labeled in the presence of the patient and sent to the lab. Saline lock flushed with 10 mL saline (started by Kam Owen RN). --05:03 Ale Ellis R.N. 05:20 01/15/2017 Started bag #1 1000 mL IV Fluids IV NS (Saline); bolus of 500 mL over 30 minute(s) then at 125 mL/hr via site #1 via IV pump. Allergies verified and confirmed 5 rights. IV patency established. IV site checked: no pain, redness, or swelling. IV flushed thoroughly pre- and post-medication administration. --05:20 Ale Ellis R.N. 05:28 01/15/2017 Zofran (Ondansetron HCl) IVP 4 mg given over 1 minute(s) via site #1. Allergies verified and confirmed 5 rights. IV patency established. IV site checked: no pain, redness, or swelling. IV flushed thoroughly pre- and post-medication administration. IVP given by RN. --05:34 Ale Ellis R.N. 05:30 01/15/2017 Dilaudid (HYDROmorphone HCl PF) IVP 0.5 mg given over 1 minute(s) via site #1. Allergies verified, confirmed 5 rights and sedative warning given to the patient. IV patency established. IV site checked: no pain, redness, or swelling. IV flushed thoroughly pre- and post-medication administration. IVP given by RN. --05:34 Ale Ellis R.N. 05:32 01/15/2017 PROTONIX (Pantoprazole Sodium) IVP 40 mg given diluted in NS 10mL over 2 minute(s) via site #1. Allergies verified and confirmed 5 rights. IV patency established. IV site checked: no pain, redness, or swelling. IV flushed thoroughly pre- and post-medication administration. IVP given by RN. --05:35 Ale Ellis R.N. 06:40. Patient ID band checked for patient name and birthdate. Clean catch urine collected with return of yellow-colored madina-colored clear urine; sample sent to lab for urinalysis. Specimen labeled in the presence of the patient. --06:40 Jeremías Hinson R.N. 07:32 01/15/2017 Started 750 mg of Levofloxacin IVPB in bag #1 150 mL; at 100 mL/hr over 1.5 hour(s) via site #1 via IV pump. Allergies verified and confirmed 5 rights. IV patency established. IV site checked: no pain, redness, or swelling. IV flushed thoroughly pre- and post-medication administration. --07:41 Rafa Marcos R.N. 07:45 01/15/2017 Started 500 mg of Metronidazole IVPB in bag #1 100 mL; at 100 mL/hr over 1 hour(s) via site #1 via IV pump. Allergies verified and confirmed 5 rights. IV patency established. IV site checked: no pain, redness, or swelling. IV flushed thoroughly pre- and post-medication administration. --07:47 Rafa Marcos R.N. 07:48 01/15/2017 Dilaudid (HYDROmorphone HCl PF) IVP 0.5 mg given over 1 minute(s) via site #1. Allergies verified, confirmed 5 rights and sedative warning given to the patient. IV patency established. IV site checked: no pain, redness, or swelling. IV flushed thoroughly pre- and post-medication administration. IVP given by RN. --07:51 Rafa Marcos R.N. 05:30 01/15/17. BP: 174/76. HR: 75. RR: 20. O2 saturation: 94%. --07:52 Rafa Marcos R.N. 06:00 01/15/17. BP: 180/83. HR: 77. RR: 20. O2 saturation: 96%. --07:53 Rafa Marcos R.N. Care transferred and report received (from JODIE Aguilera @[id number]). --07:54 Rafa Marcos R.N. ( h/p forms on chart.). --07:54 Suzie Diaz, ER Tech1 Pulse oximeter and NIBP monitor placed on patient; monitor alarms on. Head of bed elevated. Reassurance given. Call light placed in reach. Bed placed in lowest position. Brakes of bed on. --07:57 Rafa Marcos R.N. 07:50 01/15/17. BP: 160/79. HR: 73. RR: 20. O2 saturation: 94% on room air. Pain level now: 03/27. --07:57 Rafa Marcos R.N. ( Overview faxed to 2nd floor.). --08:27 Suzie Diaz ER Tech1 08:00 01/15/17. BP: 159/75. HR: 69. RR: 16. O2 saturation: 95% on room air. Pain level now: 10/25. --08:36 Rafa Marcos R.N. 08:45 01/15/2017 Metronidazole IVPB Discontinued: bag #1 completed. Total amount infused: 100 mL. IV patency established. IV site checked: no pain, redness, or swelling. IV flushed thoroughly. --08:46 Rafa Marcos R.N. 08:40 01/15/17. BP: 143/79. HR: 78. RR: 16. O2 saturation: 95% on room air. Pain level now: 10/25. --08:48 Rfaa Marcos R.N. ( Pt and his started working on the admit packet). --08:48 Rafa Marcos R.N. 09:10 01/15/2017 IV Fluids IV NS Discontinued: bag #1 completed upon admission. Total amount infused: 1000 mL. IV patency established. IV site checked: no pain, redness, or swelling. IV flushed thoroughly. --11:04 Rafa Marcos R.N. DISPOSITION / DISCHARGE Report was given to a nurse via a phone call. Report included patient's care, treatment, medications, reviewed medication reconcilliation, and condition (including any recent changes or anticipated changes). All questions were answered. Report was acknowledged. (JODIE Nichole @[id number]). --08:52 Rafa Marcos R.N. 09:12 01/15/2017 Site #[address] upon admission; patent, no pain and no signs of infection or infiltration. Good blood return present. Flushed with 10 mL saline. --09:12 Rafa Marcos R.N. Departure time: 912. Condition at departure: unchanged. Disposition: observation in Acute Care (210). Transported via stretcher by transport team with IV. --09:14 Rafa Marcos R.N. 09:00 01/15/17. BP: 152/79. HR: 78. RR: 16. O2 saturation: 95% on room air. Temp: 99.5 F. Pain level now: 10/25. --09:14 Rafa Marcos R.N. Locked/Released at 01/15/2017 11:04 by Rafa Marcos R.N.
[2017-01-15 09:27] VITALS: BP 177/80
[2017-01-15] MEDS ORDERED: VALIUM5 MG PO (10:37)
[2017-01-15] MEDS ORDERED: FEXOFENADINE H180 MG (10:37)
[2017-01-15] MEDS ORDERED: FEXOFENADINE H180 MG PO (10:38)
[2017-01-15] MEDS ORDERED: FLONASE AL50 MCG/ACT (10:39)
[2017-01-15] MEDS ORDERED: PROSTATE HEALTH PO (10:40)
[2017-01-15] MEDS ORDERED: VITAMIN D-11000 UNIT PO (10:40)
[2017-01-15 15:40] VITALS: BP 154/88
--- NOTE | 2017-01-15 18:47 | CONSULTATION REPORT ---
DATE OF CONSULTATION: 01/15/2017 CHIEF COMPLAINT: 1. Abdominal pain HISTORY OF PRESENT ILLNESS: The patient is a 76-year-old man who presented to the emergency department this morning. He developed severe abdominal pain about 6 o' clock last night on 01/14/2017 after eating dinner. He had had 3 prior episodes of a similar nature, starting on 11/23/2006. These lasted 2 or maximally 3 hours, but went away. On this occasion, the pain did not go away. He became nauseated, but did not have any vomiting. He denies diarrhea or stool changes, hematemesis, hematochezia. MEDICAL/SURGICAL HISTORY: Medical history includes hydrocephalus with a ventriculoperitoneal shunt placed on the right side in 2012. 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 He is followed by neurology at [facility] for cervical degenerative joint disease. He has cataracts which were due to be removed today, but surgery was canceled. He denies any previous abdominal surgery other than placement of ventriculoperitoneal shunt exit. Additional medical problems include Meniere syndrome, BPH, seasonal allergic rhinitis. MEDICATIONS: 1. Diazepam as needed for dizziness. 2. He takes vitamin D 5000 units p.o. daily. 3. Valium 4 mg every day p.r.n. dizziness. 4. Fexofenadine 180 mg every day. 5. Fluticasone nasal spray 50 every day. 6. Nutritional supplements. ALLERGIES: None to medications. 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 He presently lives at [place]. He is for 57 years. He denies use of alcohol or cigarettes. FAMILY HISTORY: He had 3 cousins who had pancreatic cancer, 2 of the cousins were brothers. He was not sure what ages. REVIEW OF SYSTEMS: A multipoint review of systems was obtained. The patient denies other symptoms other than the ones reported earlier in this history and physical. I reviewed at least 12 systems with him in the process. He has neck pain on a chronic basis. PHYSICAL EXAMINATION: GENERAL: VITAL SIGNS: HEENT: CHEST: HEART: ABDOMEN: MUSCULOSKELETAL: NEUROLOGIC: LAB/IMAGING: Lab tests show a white count of 17.1, hemoglobin and hematocrit 16 and 49. His sodium is a little low at 133. The patient is reportedly on sodium restriction for his ear problems. His glucose was 154. His bilirubin was 2.2 and his lipase was normal. Liver enzymes were all normal. Abdominal CT showed cholelithiasis with inflammatory changes around the gallbladder consistent with acute cholecystitis. He has a 5 cm left inguinal hernia with a knuckle of sigmoid colon, mild sigmoid diverticulosis and a right-sided DIRECTOR OF SERVICES shunt. IMPRESSION: 1. Acute cholecystitis. PLAN: I recommended that the patient be treated with antibiotics and bowel rest. He can have some sips of clear liquids today. I have scheduled him for surgery tomorrow at the next available opportunity to undergo a laparoscopic cholecystectomy and cholangiography I explained to the patient the nature of this operation as well as some risks such as infection, bleeding, scars, pain, damage to local structures, possible common duct stones and postoperative pancreatitis. He would like to proceed with surgery as described to him.
--- NOTE | 2017-01-15 18:47 | CONSULTATION REPORT ---
DATE OF CONSULTATION: 01/15/2017 CHIEF COMPLAINT: 1. Abdominal pain HISTORY OF PRESENT ILLNESS: The patient is a 76-year-old man who presented to the emergency department this morning. He developed severe abdominal pain about 6 o' clock last night on 01/14/2017 after eating dinner. He had had 3 prior episodes of a similar nature, starting on 11/23/2006. These lasted 2 or maximally 3 hours, but went away. On this occasion, the pain did not go away. He became nauseated, but did not have any vomiting. He denies diarrhea or stool changes, hematemesis, hematochezia. MEDICAL/SURGICAL HISTORY: Medical history includes hydrocephalus with a ventriculoperitoneal shunt placed on the right side in 2012. 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 He is followed by neurology at [facility] for cervical degenerative joint disease. He has cataracts which were due to be removed today, but surgery was canceled. He denies any previous abdominal surgery other than placement of ventriculoperitoneal shunt exit. Additional medical problems include Meniere syndrome, BPH, seasonal allergic rhinitis. MEDICATIONS: 1. Diazepam as needed for dizziness. 2. He takes vitamin D 5000 units p.o. daily. 3. Valium 4 mg every day p.r.n. dizziness. 4. Fexofenadine 180 mg every day. 5. Fluticasone nasal spray 50 every day. 6. Nutritional supplements. ALLERGIES: None to medications. 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 He presently lives at [place]. He is for 57 years. He denies use of alcohol or cigarettes. FAMILY HISTORY: He had 3 cousins who had pancreatic cancer, 2 of the cousins were brothers. He was not sure what ages. REVIEW OF SYSTEMS: A multipoint review of systems was obtained. The patient denies other symptoms other than the ones reported earlier in this history and physical. I reviewed at least 12 systems with him in the process. He has neck pain on a chronic basis. PHYSICAL EXAMINATION: GENERAL: VITAL SIGNS: HEENT: CHEST: HEART: ABDOMEN: MUSCULOSKELETAL: NEUROLOGIC: LAB/IMAGING: Lab tests show a white count of 17.1, hemoglobin and hematocrit 16 and 49. His sodium is a little low at 133. The patient is reportedly on sodium restriction for his ear problems. His glucose was 154. His bilirubin was 2.2 and his lipase was normal. Liver enzymes were all normal. Abdominal CT showed cholelithiasis with inflammatory changes around the gallbladder consistent with acute cholecystitis. He has a 5 cm left inguinal hernia with a knuckle of sigmoid colon, mild sigmoid diverticulosis and a right-sided TELEPRINTER INSTALLER shunt. IMPRESSION: 1. Acute cholecystitis. PLAN: I recommended that the patient be treated with antibiotics and bowel rest. He can have some sips of clear liquids today. I have scheduled him for surgery tomorrow at the next available opportunity to undergo a laparoscopic cholecystectomy and cholangiography I explained to the patient the nature of this operation as well as some risks such as infection, bleeding, scars, pain, damage to local structures, possible common duct stones and postoperative pancreatitis. He would like to proceed with surgery as described to him.
[2017-01-15 18:49] VITALS: BP 145/85
--- NOTE | 2017-01-15 21:37 | ED MED RECONCILIATION SUMMARY ---
Patient: RENETTA KOHLI Medication Reconciliation Report [facility] VisitID: [id number] [address] [place] [address] 76y, M Registration Date/Time: 01/15/2017 Weight: 77.1 kg Height/Length: 68 in. BMI: 25.9 ALLERGIES: No Known Drug Allergy The patient's Home Medications are listed below: THE FOLLOWING MEDICATIONS NEED TO BE RECONCILED: Mar-D Allergy & Congestion Oral Diazepam Oral, dizziness due to inner ear problems, last dose: 2-3 weeks Fexofenadine HCl Oral Fluticasone Furoate Nasal The source(s) of the original Home Medication information: Not obtained. The following Medications were given to the patient in the Emergency Department: IV NS IV Fluids bolus 500 mL over 30 minute(s), then 125 mL/hr, administered: 01/15/2017 5:20:00 AM Zofran [IVP] IVP 4 mg, administered: 01/15/2017 5:28:00 AM Dilaudid [IVP] IVP 0.5 mg, administered: 01/15/2017 5:30:00 AM PROTONIX [IVP] IVP 40 mg diluted in NS 10 mL, administered: 01/15/2017 5:32:00 AM Levofloxacin [IVPB] IVPB bolus 0, then 750 mg 100 mL/hr, administered: 01/15/2017 7:32:00 AM Metronidazole [IVPB] IVPB bolus 0, then 500 mg 100 mL/hr, administered: 01/15/2017 7:45:00 AM Dilaudid [IVP] IVP 0.5 mg, administered: 01/15/2017 7:48:00 AM The following Medications were prescribed to the patient: None.
--- NOTE | 2017-01-15 21:37 | ED MED RECONCILIATION SUMMARY ---
Patient: RENETTA KOHLI Medication Reconciliation Report [facility] VisitID: [id number] [address] [place] [address] 76y, M Registration Date/Time: 01/15/2017 Weight: 77.1 kg Height/Length: 68 in. BMI: 25.9 ALLERGIES: No Known Drug Allergy The patient's Home Medications are listed below: THE FOLLOWING MEDICATIONS NEED TO BE RECONCILED: Mar-D Allergy & Congestion Oral Diazepam Oral, dizziness due to inner ear problems, last dose: 2-3 weeks Fexofenadine HCl Oral Fluticasone Furoate Nasal The source(s) of the original Home Medication information: Not obtained. The following Medications were given to the patient in the Emergency Department: IV NS IV Fluids bolus 500 mL over 30 minute(s), then 125 mL/hr, administered: 01/15/2017 5:20:00 AM Zofran [IVP] IVP 4 mg, administered: 01/15/2017 5:28:00 AM Dilaudid [IVP] IVP 0.5 mg, administered: 01/15/2017 5:30:00 AM PROTONIX [IVP] IVP 40 mg diluted in NS 10 mL, administered: 01/15/2017 5:32:00 AM Levofloxacin [IVPB] IVPB bolus 0, then 750 mg 100 mL/hr, administered: 01/15/2017 7:32:00 AM Metronidazole [IVPB] IVPB bolus 0, then 500 mg 100 mL/hr, administered: 01/15/2017 7:45:00 AM Dilaudid [IVP] IVP 0.5 mg, administered: 01/15/2017 7:48:00 AM The following Medications were prescribed to the patient: None.
--- NOTE | 2017-01-15 21:37 | ED MAR SUMMARY ---
..... Medication Administration Record [facility] [address] [place] [address] Patient: RENETTA KOHLI Visit ID: [id number] 76y, M Weight: 77.1 kg Height/Length: 68 in BMI: 25.9 ALLERGIES: No Known Drug Allergy Start 05:20 01/15/2017 Ale Ellis R.N., Stop 09:10 01/15/2017 Rafa Marcos R.N. Medication Administered: IV NS (SALINE), Dose: IV Fluids, Rate: 125 mL/hr, Bolus: 500 mL over 30 minute(s), Dispensed: 1000 mL bag, Site: #1 right AC. Medication Ordered: IV NS : initial bolus 500 mL (1000 mL/hr), then 125 mL/hr for 4h (NOW); Urgent. Given 05:28 01/15/2017 Ale Ellis R.N. Medication Administered: ZOFRAN [IVP] (ONDANSETRON HCL), Dose: 4 mg IVP over 1 minute(s), Site: #1 right AC. Medication Ordered: Zofran IV 4 mg (NOW). Given 05:30 01/15/2017 Ale Ellis R.N. Medication Administered: DILAUDID [IVP] (HYDROMORPHONE HCL PF), Dose: 0.5 mg IVP over 1 minute(s), Site: #1 right AC. Medication Ordered: Dilaudid IV 0.5 mg (NOW). Given 05:32 01/15/2017 Ale Ellis R.N. Medication Administered: PROTONIX [IVP] (PANTOPRAZOLE SODIUM), Dose: 40 mg IVP over 2 minute(s), In: NS 10 mL, Site: #1 right AC. Medication Ordered: Protonix IVP 40mg 40 mg (Mix in NS 10ml over 2min). Start 07:32 01/15/2017 Rafa Marcos R.N. Medication Administered: LEVOFLOXACIN [IVPB], Dose: 750 mg IVPB over 1.5 hour(s), Rate: 100 mL/hr, Dispensed: 150 mL bag, Site: #1 right AC. Medication Ordered: Levofloxacin IV 750 mg/150 mL (NOW). Start 07:45 01/15/2017 Rafa Marcos R.N., Stop 08:45 01/15/2017 Rafa Marcos R.N. Medication Administered: METRONIDAZOLE [IVPB], Dose: 500 mg IVPB over 1 hour(s), Rate: 100 mL/hr, Dispensed: 100 mL bag, Site: #1 right AC. Medication Ordered: Metronidazole IV 500 mg/100mL (NOW). Given 07:48 01/15/2017 Rafa Marcos R.N. Medication Administered: DILAUDID [IVP] (HYDROMORPHONE HCL PF), Dose: 0.5 mg IVP over 1 minute(s), Site: #1 right AC. Medication Ordered: Dilaudid IV 0.5 mg (HIGH ALERT MEDICATION, NOW).
--- NOTE | 2017-01-15 21:37 | ED MAR SUMMARY ---
..... Medication Administration Record [facility] [address] [place] [address] Patient: RENETTA KOHLI Visit ID: [id number] 76y, M Weight: 77.1 kg Height/Length: 68 in BMI: 25.9 ALLERGIES: No Known Drug Allergy Start 05:20 01/15/2017 Ale Ellis R.N., Stop 09:10 01/15/2017 Rafa Marcos R.N. Medication Administered: IV NS (SALINE), Dose: IV Fluids, Rate: 125 mL/hr, Bolus: 500 mL over 30 minute(s), Dispensed: 1000 mL bag, Site: #1 right AC. Medication Ordered: IV NS : initial bolus 500 mL (1000 mL/hr), then 125 mL/hr for 4h (NOW); Urgent. Given 05:28 01/15/2017 Ale Ellis R.N. Medication Administered: ZOFRAN [IVP] (ONDANSETRON HCL), Dose: 4 mg IVP over 1 minute(s), Site: #1 right AC. Medication Ordered: Zofran IV 4 mg (NOW). Given 05:30 01/15/2017 Ale Ellis R.N. Medication Administered: DILAUDID [IVP] (HYDROMORPHONE HCL PF), Dose: 0.5 mg IVP over 1 minute(s), Site: #1 right AC. Medication Ordered: Dilaudid IV 0.5 mg (NOW). Given 05:32 01/15/2017 Ale Ellis R.N. Medication Administered: PROTONIX [IVP] (PANTOPRAZOLE SODIUM), Dose: 40 mg IVP over 2 minute(s), In: NS 10 mL, Site: #1 right AC. Medication Ordered: Protonix IVP 40mg 40 mg (Mix in NS 10ml over 2min). Start 07:32 01/15/2017 Rafa Marcos R.N. Medication Administered: LEVOFLOXACIN [IVPB], Dose: 750 mg IVPB over 1.5 hour(s), Rate: 100 mL/hr, Dispensed: 150 mL bag, Site: #1 right AC. Medication Ordered: Levofloxacin IV 750 mg/150 mL (NOW). Start 07:45 01/15/2017 Rafa Marcos R.N., Stop 08:45 01/15/2017 Rafa Marcos R.N. Medication Administered: METRONIDAZOLE [IVPB], Dose: 500 mg IVPB over 1 hour(s), Rate: 100 mL/hr, Dispensed: 100 mL bag, Site: #1 right AC. Medication Ordered: Metronidazole IV 500 mg/100mL (NOW). Given 07:48 01/15/2017 Rafa Marcos R.N. Medication Administered: DILAUDID [IVP] (HYDROMORPHONE HCL PF), Dose: 0.5 mg IVP over 1 minute(s), Site: #1 right AC. Medication Ordered: Dilaudid IV 0.5 mg (HIGH ALERT MEDICATION, NOW).
--- NOTE | 2017-01-15 21:37 | ED DISCHARGE INSTRUCTIONS ---
Patient: RENETTA KOHLI General Instructions [facility] VisitID: [id number] [address] [place] [address] 76y, M Registration Date/Time: 01/15/2017 Acute cholecystitis. (Electronically signed by Ej Botello MD 01/15/2017 21:36)
--- NOTE | 2017-01-15 21:37 | ED DISCHARGE INSTRUCTIONS ---
Patient: RENETTA KOHLI General Instructions [facility] VisitID: [id number] [address] [place] [address] 76y, M Registration Date/Time: 01/15/2017 Acute cholecystitis. (Electronically signed by Ej Botello MD 01/15/2017 21:36)
[2017-01-15 22:39] VITALS: BP 153/93
[2017-01-16] VITALS (11 sets, daily range): BP systolic 100–173; BP diastolic 61–94
--- NOTE | 2017-01-16 10:02 | DIAGNOSTIC IMAGING REPORT ---
PROCEDURE: XR INTRAOPERATIVE LAP DUGLAS INDICATION: IOC TECHNIQUE: Intraoperative fluoroscopy provided for Dr. Leary performing an intraoperative cholangiogram following cholecystectomy. Total fluoroscopy time 0.6 minutes Cumulative dose 2.6 mGy. COMPARISON: None. FINDINGS: Two intraoperative fluoroscopic spot images of the right upper quadrant of the abdomen demonstrate cannulation of the cystic duct stump and opacification of the intrahepatic and extrahepatic biliary tree. There are no filling defects. There is normal passage of contrast into the duodenum. IMPRESSION: 1. Negative intraoperative cholangiogram.
[2017-01-16] MEDS ORDERED: NORCO1 TA1 PO (10:26)
--- NOTE | 2017-01-16 10:27 | Provider's Discharge Care Plan ---
Problem, Goal, Plan Problem List 1. Cholecystitis
--- NOTE | 2017-01-16 10:27 | Provider's Discharge Care Plan ---
Problem, Goal, Plan Problem List 1. Cholecystitis
--- NOTE | 2017-01-16 11:36 | OPERATIVE REPORT ---
DATE OF SURGERY: 01/16/2017 SURGEON: Jarrell Childers MD [employer] TECHNICIAN: Jeremias Julien III, MD PREOPERATIVE DIAGNOSIS: 1. Acute cholecystitis POSTOPERATIVE DIAGNOSIS: 1. Acute gangrenous cholecystitis PROCEDURE PERFORMED: 1. Laparoscopic cholecystectomy and cholangiography ANESTHESIA: General. INDICATIONS: The patient is a 76-year-old man presenting with right upper quadrant abdominal pain and cholelithiasis. SURGICAL TECHNIQUE: The patient was taken to the operating room, where a general anesthetic was administered and the patient prepped and draped in the usual sterile fashion. IV antibiotics were administered, and a local anesthetic of 0.5% Marcaine with epinephrine was infiltrated at each incision. An intraumbilical incision was made and a Veress needle used to insufflate the abdominal cavity. A 10 mm cannula was passed and visualization obtained. This demonstrated a gallbladder that was rigidly encased in omentum, with a small window of green, necrotic gallbladder visible laterally up against the abdominal wall. Three additional cannulas were placed in the upper midline. The gallbladder was tediously dissected away from tenaciously adherent omentum. This was gradually done using a combination of modalities, including hydrodissection, blunt dissection and electrocautery. The dissection to expose the gallbladder caused this operation to be much longer in duration, with the time of surgery at least 50% more than the usual time for a laparoscopic cholecystectomy. Once the anterior wall of the gallbladder was freed up, careful gradual blunt dissection was used to follow the Lois pouch region of the gallbladder around the bottom of the gallbladder. This eventually led to the cystic duct. The cystic duct, node of Calot and cystic artery were all isolated on the neck of the gallbladder. A clip was placed there and a fluoroscopic cholangiogram was carried out, revealing free flow into the duodenum and no filling defects. The cystic duct and cystic artery were doubly clipped and divided, and the gallbladder was stripped from the gallbladder fossa using electrocautery. The very upper part of the back wall of the gallbladder was gangrenous and adherent to the liver. This area was simply cauterized and irrigated and left in place. All the stones were contained in the most dependent portion of the gallbladder and did not spill in the abdomen. A specimen bag was used to contain the gallbladder, and it was then drawn to the upper midline trocar site where it was morcellated and extracted serially in small bits and pieces. The operative site was irrigated and found to be hemostatic. Additional Marcaine with epinephrine was instilled. A flat 10 mm silicone drain was placed in the gallbladder bed and brought out laterally through the far right inferolateral trocar site, where it was secured to the skin with 2-0 nylon suture and eventually placed to bulb suction. The midline trocar sites were closed with interrupted subcuticular 4-0 Vicryl suture. Steri-Strips and dressings were placed. Note at the start of the procedure, the ventriculoperitoneal shunt tubing was found to be draped laterally toward the right side. This was first freed up of surrounding omentum and moved to the left side to get it out of the way of the operation and keep it away from the contaminated area of the abdominal operative field.
== END 2017-01-16 16:00 | disposition home or self-care (01) ==
LOC: ED SRH 04:50 → ACUTE2 SRH 08:00 → TRANS SRH 08:00 → ACUTE2 SRH 09:15
PROVIDERS: ADMIT Emergency Medicine
DX: K80.00 Calculus of gallbladder with acute cholecystitis without obstruction (principal); K82.8 Other specified diseases of gallbladder; G91.9 Hydrocephalus, unspecified; K40.90 Unilateral inguinal hernia, without obstruction or gangrene, not specified as recurrent; Z98.2 Presence of cerebrospinal fluid drainage device
CPT/HCPCS: 29229; 29230; 29244; 29264; 50002; 60001; 70002; 80102; 80248; 80813; 82794; 82807; 83338; 83339; 83348; 83587; 83920; 83937; 83982; 84038; 84044; 90004; 90065; 90070; 90074; 90100; 91672; 92031; 92235; 92530; 95059